=== PATIENT | female | born 1950 | race Caucasian/White ===

== ENCOUNTER 2017-07-22 23:51 | Emergency (ER) | payer MEDICARE, BC ==
[2017-07-23 00:01] VITALS: RESP 18
[2017-07-23] MEDS ORDERED: SODIUM CHLORIDE 0.9% 1000ML 1,000 ML IV ONE (00:19)
[2017-07-23] MEDS ORDERED: SODIUM CHLORIDE 0.9% FLUSH 10 ML SOL IV PRN (00:56)
[2017-07-23 01:01] VITALS: TEMP 98.1; O2SAT 97
[2017-07-23 01:06] LABS: CALCIUM 8.4 mg/dl (8.5-10.1)
[2017-07-23 01:08] LABS: BASOPHILS % (AUTO) 1 % (0-3); EOSINOPHILS % (AUTO) 1 % (0-9); HEMATOCRIT 43 % (35-47); MEAN CORPUSCULAR HGB CONC 33.2 gm/dl (32.0-36.0); MEAN CORPUSCULAR VOLUME 93 fL (81-99); MONOCYTES % (AUTO) 7.6 % (0-12); NEUTROPHILS % (AUTO) 77.6 % (37-80)
[2017-07-23 02:35] VITALS: BP 134/82; PULSE 82
== END 2017-07-23 02:21 | disposition home or self-care (01) | DRG 156 ==
LOC: ED 23:51
DX: S02.2XXA Fracture of nasal bones, initial encounter for closed fracture (principal); J06.9 Acute upper respiratory infection, unspecified; W18.11XA Fall from or off toilet without subsequent striking against object, initial encounter; R40.2362 Coma scale, best motor response, obeys commands, at arrival to emergency department; R40.2142 Coma scale, eyes open, spontaneous, at arrival to emergency department; R40.2252 Coma scale, best verbal response, oriented, at arrival to emergency department; R55 Syncope and collapse
CPT/HCPCS: 70450; 80048; 85025; 87430; 93005; 96365; 99284; 99285